=== PATIENT | female | born 1950 | race Caucasian/White ===

== ENCOUNTER → 2016-12-18 | Outpatient (CLI) | payer OTHER | LOC: LAB 10:25 | DX: N30.01 Acute cystitis with hematuria (principal); R82.99 Other abnormal findings in urine | CPT/HCPCS: 87088 ==

== ENCOUNTER → 2017-01-02 | Outpatient (CLI) | payer OTHER ==
--- NOTE | 2017-01-02 16:07 | EKG ---
[facility] [place] Inter[place] Rate: 57 P: 66 MI: 210 QRS: 9 QRSD: 87 T: 35 QT: 407 QTc: 402 Interpretive Statements SINUS RHYTHM WITH PROLONGED MI INTERVAL No previous ECG available for comparison Electronically Signed On 01-03-17 09:16:05 MDT by Anderson Le MD [email or web address]
== END ==
LOC: EKG 16:45
PROVIDERS: ATTEND Physician Assistant Medical
DX: I48.2 Chronic atrial fibrillation (principal)
CPT/HCPCS: 93005; 93010

== ENCOUNTER → 2017-02-15 | Outpatient (CLI) | payer OTHER ==
[2017-02-15 15:53] LABS: BILIRUBIN,URINE NEGATIVE (NEG); COLOR,URINE YELLOW; GLUCOSE, URINE (UA) NEGATIVE (NEG); NITRATE,URINE NEGATIVE (NEG); OCCULT BLOOD,URINE NEGATIVE (NEG); PH,URINE 5.5 (5.0-8.5); PROTEIN,URINE NEGATIVE (NEG); UROBILINOGEN,URINE 0.2 EU/dL (0.2)
[2017-02-15 16:09] LABS: CLARITY,URINE CLEAR (CLEAR)
[2017-02-15 16:10] LABS: BACTERIA,URINE RARE; RENAL EPITHELIAL CELLS,URINE RARE; SQUAMOUS EPITHELIAL CELL,UR RARE; URINE SAMPLE TYPE CLEAN CATCH URINE
== END ==
LOC: LAB 09:20
PROVIDERS: ATTEND Physician Assistant Medical
DX: N39.0 Urinary tract infection, site not specified (principal); R82.99 Other abnormal findings in urine
CPT/HCPCS: 81001

== ENCOUNTER → 2017-02-19 | Outpatient (CLI) | payer OTHER | LOC: LAB 09:56 | PROVIDERS: ATTEND Physician Assistant Medical | DX: N39.0 Urinary tract infection, site not specified (principal) | CPT/HCPCS: 87088 ==